=== PATIENT | female | born 1960 | race Caucasian/White ===

== ENCOUNTER 2017-01-18 16:42 | Emergency (ER) | payer OTHER ==
[2017-01-18 19:15] LABS: RED BLOOD COUNT 4.7 M/UL (4.00-5.10); WHITE BLOOD COUNT 19.2 K/UL (4.5-11.0)
[2017-01-18 19:31] LABS: BUN/CREATININE RATIO 10 (0-10)
== END 2017-01-18 21:41 | disposition left against medical advice (07) ==
LOC: ER1 16:42
PROVIDERS: Family Medicine
DX: I99.8 Other disorder of circulatory system (principal); E11.65 Type 2 diabetes mellitus with hyperglycemia; E11.40 Type 2 diabetes mellitus with diabetic neuropathy, unspecified; E87.6 Hypokalemia; F17.200 Nicotine dependence, unspecified, uncomplicated; Z88.0 Allergy status to penicillin; Z79.84 Long term (current) use of oral hypoglycemic drugs; Z79.899 Other long term (current) drug therapy
CPT/HCPCS: 36415; 73630; 80053; 85025; 85610; 85730; 86140; 96360; 99283; J7030

== ENCOUNTER → 2021-12-03 | Outpatient (CLI) | payer OTHER ==
[~2021-12-03] MED LIST: AMLODIPINE BESY10 MG PO; ATORVASTATIN CA40 MG PO; DULOXETINE HCL60 MG PO; HYDROCHLOROTH12.5 MG PO; HYDROCODON-ACE1 EAC6 PO; LANTUS100 UNIT/1 SQ; METFORMIN HCL1000 MG PO; MONTELUKAST SOD10 MG PO; PLAVIX75 MG PO; PREGABALIN200 MG PO; VALSARTAN40 MG PO
[2021-12-03 12:39] LABS: HEMOGLOBIN 11.2 gm/dl (12.3-15.3); RED BLOOD COUNT 4.2 M/UL (4.00-5.10); WHITE BLOOD COUNT 11.8 K/UL (4.5-11.0)
[2021-12-03 13:07] LABS: BUN/CREATININE RATIO 18 (0-10)
== END ==
LOC: LAB 12:09
PROVIDERS: Internal Medicine Interventional Cardiology
DX: E78.5 Hyperlipidemia, unspecified (principal); I10 Essential (primary) hypertension; R94.39 Abnormal result of other cardiovascular function study; J44.9 Chronic obstructive pulmonary disease, unspecified; E11.9 Type 2 diabetes mellitus without complications; Z86.711 Personal history of pulmonary embolism; R07.2 Precordial pain; R06.02 Shortness of breath
CPT/HCPCS: 36415; 80048; 85025; 85610; 85730; 93005